=== PATIENT | male | born 1950 | race Caucasian/White ===

== ENCOUNTER → 2023-12-03 | Day surgery (SDC) | payer OTHER, BC ==
[2023-12-01 11:33] VITALS: BMI 21.2
[~2023-12-03] MED LIST: ACETAMINOPHEN 1000 MG/100 ML BAG IVPB PRN; CLOPIDOGREL BISULFATE 75 MG TABLET (FP) ONE; HEPARIN NA (PORCINE) 5,000 UNITS/ML 1ML VIAL ONE; LACTATED RINGERS SOLUTION 1,000 ML IV SCH; LIDOCAINE HCL 1%, 10 MG/ML (20ML VIAL) ONE; MIDAZOLAM HCL 2 MG/2 ML SINGLE DOSE VIAL ONE; ONDANSETRON 4 MG/2 ML VIAL IVPUSH PRN; PROPOFOL 20 ML ONE; ceFAZolin SODIUM 1 GM VIAL ONE; oxyCODONE HCL 5 MG TABLET PO PRN
[2023-12-03] MEDS: ceFAZolin SODIUM 1 GM VIAL IVPB ONE ×2 (10:50)
[2023-12-03] MEDS: LIDOCAINE HCL 1%, 10 MG/ML (20ML VIAL) INF ONE ×2 (10:56)
[2023-12-03] MEDS: IOHEXOL 300 MG/ML INFUS..BTL IV ONE (10:56)
[2023-12-03] MEDS: CLOPIDOGREL BISULFATE 75 MG TABLET (FP) PO ONE (12:12)
[2023-12-03 16:07] VITALS: BP 129/80; PULSE 60; RESP 20
[2023-12-03 16:09] VITALS: TEMP 97.6
== END | disposition home or self-care (01) ==
LOC: JASU-SURG 04:00
PROVIDERS: ATTEND Surgery Vascular Surgery
PROC: 047L3D1 Dilation of Left Femoral Artery with Intraluminal Device, using Drug-Coated Balloon, Percutaneous Approach (ICD-10-PCS; principal; 2023-12-03 10:30)
DX: I70.212 Atherosclerosis of native arteries of extremities with intermittent claudication, left leg (principal); Z72.0 Tobacco use
CPT/HCPCS: 37227; C1877; C2623; 76000-TC-FY; 94760; C1760; C1876; C1897; J1644